=== PATIENT | male | born 1955 | race Caucasian/White ===

== ENCOUNTER 2017-07-18 03:24 | Emergency (ER) | payer BC ==
[~2017-07-18] VITALS: Ht 190.5 cm; Wt 87.7 kg
[2017-07-18 03:28] VITALS: PULSE 88; TEMP 99.8
[2017-07-18 03:49] LABS: BASO % 0.4 % (0.0-2.0); EOS # 0.1 (0.0-0.7); EOS % 0.7 % (0-4.0); GRAN # 7.6 (1.4-6.5); GRAN % 75.1 % (42.2-75.2); HEMATOCRIT 38.9 % (42.0-52.0); HEMOGLOBIN 13.2 g/dl (13.5-18.0); LYMPH # 1.6 (1.2-3.4); LYMPH % 15.4 % (20.0-51.0); MEAN CELL VOLUME 95 fl (80.0-100.0); MEAN CORPUSCULAR HEMOGLOBIN 32 pg (27.0-31.0); MEAN CORPUSCULAR HGB CONC 34 g/dl (33.0-37.0); MEAN PLATELET VOLUME 9.9 fl (7.4-10.4); MONO # 0.8 (0.1-0.6); MONO % 8.1 % (1.7-9.3); PLATELET COUNT 247 K/mm3 (130-400); RED BLOOD COUNT 4.11 M/mm3 (4.20-5.60); WHITE BLOOD COUNT 10.1 K/mm3 (4.8-10.8)
[2017-07-18 04:00] LABS: ADJUSTED CALCIUM 8.9 mg/dL (8.4-10.2); ALBUMIN 4.2 gm/dL (3.5-5.0); BILIRUBIN,TOTAL 0.7 mg/dL (0.0-1.0); CALCIUM 9.1 mg/dL (8.4-10.2); CREATININE, serum 1.34 mg/dL (0.66-1.25); POTASSIUM 3.8 mmol/L (3.4-5.0); TOTAL PROTEIN 6.8 gm/dL (6.4-8.2)
[2017-07-18 06:08] LABS: COLLECTION METHOD CLEAN CATCH
[2017-07-18 06:21] LABS: PH 6 (5-8); SQUAMOUS EPITHELIAL None Seen /hpf; URINE APPEARANCE Clear; URINE BACTERIA None Seen /hpf; URINE BILIRUBIN Negative (NEGATIVE); URINE BLOOD 2+ (NEGATIVE); URINE COLOR Yellow; URINE GLUCOSE 1+ (NEGATIVE); URINE KETONE Trace (NEGATIVE); URINE LEUKOCYTE ESTERASE Negative (NEGATIVE); URINE PROTEIN(semi-quant) Negative (NEGATIVE); URINE UROBILINOGEN Negative (NEGATIVE); URINE WBC 0-2 /hpf
[2017-07-18] MEDS ORDERED: MIRALAX 255 GM255 GM PO (06:28)
[2017-07-18] MEDS ORDERED: FLOMAX 0.40.4 MG/CAP PO (06:28)
[2017-07-18] MEDS ORDERED: ZOFRAN 4MG T4 MG/TAB PO (06:28)
[2017-07-18] MEDS ORDERED: PERCOCET 325 MG1 TA2 PO (06:28)
[2017-07-18 06:53] VITALS: BP 109/70
== END 2017-07-18 06:53 | disposition other institution (70) ==
LOC: COL.ER 03:24
PROVIDERS: Emergency Medicine
DX: N20.0 Calculus of kidney (principal); I10 Essential (primary) hypertension
CPT/HCPCS: J2270; J2405; J7030; Q9967

== ENCOUNTER → 2021-06-21 | Outpatient (CLI) | payer BC ==
[~2021-06-21] MED LIST: FLOMAX 0.40.4 MG/CAP PO; MIRALAX 255 GM255 GM PO; PERCOCET 325 MG1 TA2 PO; ZOFRAN 4MG T4 MG/TAB PO
[2021-06-21 19:33] VITALS: BP 120/61; PULSE 68; TEMP 98.1
== END ==
LOC: COL.ER 18:42 → EDSTATUS 19:13
DX: R69 Illness, unspecified (principal)

== ENCOUNTER → 2021-06-21 | Outpatient (CLI) | payer BC | LOC: COL.RAD 11:01 | DX: S12.000A Unspecified displaced fracture of first cervical vertebra, initial encounter for closed fracture (principal) ==

== ENCOUNTER → 2021-08-28 | Outpatient (CLI) | payer BC | LOC: COL.RAD 12:27 | DX: S12.001D Unspecified nondisplaced fracture of first cervical vertebra, subsequent encounter for fracture with routine healing (principal) ==

== ENCOUNTER 2021-12-11 08:54 | Day surgery (SDC) | payer MEDICARE, BC ==
[~2021-12-11] VITALS: Ht 190.5 cm; Wt 84.9 kg
[2021-12-11] MEDS ORDERED: CENTRUM SILVER1 CTB PO (09:26)
[2021-12-11 10:10] VITALS: BP 140/92; PULSE 77; TEMP 98
[2021-12-11 10:55] VITALS: BP 112/87; PULSE 74; TEMP 97.7
[2021-12-11 11:10] VITALS: BP 127/87; PULSE 65
[2021-12-11 11:25] VITALS: BP 136/93; PULSE 69
--- NOTE | 2021-12-11 11:45 | NUR ---
1055 PT RETURNED TO [facility] VIA CART, TRANSFERED TO CHAIR WITH RN ASSIST. ALERT AND ORIENTED. MONITORS ATTACHED, INTERVALS AND ALARMS SET. JUICE AND MUFFIN PROVIDED. PT DENIES DISCOMFORT. CALL LIGHT IN REACH. 1110 VSS. PT TOLERATING FOOD AND DRINK WELL. 1125 PT DENIES DISCOMFORT. VSS. DR IN TO SPEAK WITH PT. REVIEWED DISCHARGE INSTRUCTIONS AND EDUACTION PACKET, ANSERED ALL QUESTIONS. IV REMOVED WITHOUT COMPLCATIONS. PT ALLOWED TO DRESS. 1145 PT TRANSFERED VIA WHEELCHAIR TO PERSONAL VEHICLE TO BE DROVEN HOME BY DAUGHTER.
== END 2021-12-11 11:45 | disposition home or self-care (01) ==
LOC: SDCO 08:54
DX: Z12.11 Encounter for screening for malignant neoplasm of colon (principal); K64.0 First degree hemorrhoids; Z86.010 Personal history of colon polyps
CPT/HCPCS: J2704

== ENCOUNTER → 2022-01-22 | Outpatient (RCR) | payer MEDICARE, BC ==
[~2022-01-22] MED LIST changes: +CENTRUM SILVER1 CTB PO
== END | disposition still patient (30) ==
LOC: PT.GENESIS
DX: S12.001D Unspecified nondisplaced fracture of first cervical vertebra, subsequent encounter for fracture with routine healing (principal); X58.XXXD Exposure to other specified factors, subsequent encounter

== ENCOUNTER → 2022-02-21 | Outpatient (RCR) | payer MEDICARE, BC | END | disposition still patient (30) | LOC: PT.GENESIS | DX: S12.001D Unspecified nondisplaced fracture of first cervical vertebra, subsequent encounter for fracture with routine healing (principal); X58.XXXD Exposure to other specified factors, subsequent encounter ==

== ENCOUNTER 2022-03-19 10:15 | Outpatient (RCR) | payer MEDICARE, BC | END 2022-03-19 15:17 | disposition home or self-care (01) | LOC: PT.GENESIS 10:15 | DX: S12.001D Unspecified nondisplaced fracture of first cervical vertebra, subsequent encounter for fracture with routine healing (principal); X58.XXXD Exposure to other specified factors, subsequent encounter ==